=== PATIENT | male | born 1965 | race Caucasian/White ===

== ENCOUNTER 2017-03-22 21:05 | Emergency (ER) | payer BC, MEDICAID ==
[~2017-03-22] VITALS: Ht 188 cm; Wt 116.1 kg
[2017-03-22 21:20] VITALS: BP_SYST 145
--- NOTE | 2017-03-22 21:20 | NUR ---
Note graham in ED - 03/23/17 at 0344 by LEANNA Pt states that he has having back spasms on and off for about a week. Pt is unbearable now. No trauma. Will continue to monitor.
--- NOTE | 2017-03-22 21:30 | NUR ---
Pt states that he has having back spasms on and off for about a week. Pt is unbearable now. No trauma. Will continue to monitor.
--- NOTE | 2017-03-22 21:30 | NUR ---
Placed in hallway.
--- NOTE | 2017-03-22 22:10 | NUR ---
Shu ABDALLA assessing pt.
[2017-03-22] MEDS ORDERED: HYDROmorphone 1 MG INJ. 1 MG/ML AMPUL IM ONE (22:15)
[2017-03-22] MEDS ORDERED: CARISOPRODOL 350 MG TABLET PO ONE (22:15)
[2017-03-22] MEDS ORDERED: ONDANSETRON 4 MG ODT TAB PO ONE (22:45)
[2017-03-22 23:29] VITALS: BP_SYST 145
--- NOTE | 2017-03-22 23:29 | NUR ---
Patient given written and verbal discharge instructions and verbalizes understanding. ER MD discussed with patient the results and treatment provided. Patient in stable condition. ID arm band removed. Rx of Soma, Tramadol, and Motrin given. Patient educated on pain management and to follow up with PMD. Pain Scale 0/10. Opportunity for questions provided and answered. No adverse reactions note.
== END 2017-03-22 23:29 | disposition home or self-care (01) ==
LOC: SED 21:05
DX: M54.17 Radiculopathy, lumbosacral region (principal); R03.0 Elevated blood-pressure reading, without diagnosis of hypertension
CPT/HCPCS: 96372; 99283; J1170; Q0162